=== PATIENT | female | born 1980 | race Caucasian/White ===

== ENCOUNTER 2016-10-21 05:58 | Emergency (ER) | payer MEDICAID, OTHER ==
[~2016-10-21] VITALS: Ht 167.6 cm; Wt 90.0 kg
[~2016-10-21 05:58] MED LIST: IBUP800T23 PO; MEDR4PAK3 PO; METH750T2 PO
[2016-10-21 05:59] VITALS: BP 213/120; PULSE 107; RESP 18; TEMP 98.2; O2SAT 97
--- NOTE | 2016-10-21 06:24 | PD ---
HPI Chief Complaint: Abdominal Pain Time Seen by Provider: 06:04 Travel History International Travel<30 days: No Contact w/Intl Traveler<30days: No Traveled to known affect area: No History of Present Illness HPI This is a 36-year-old female who presents to the emergency department with upper abdominal discomfort this morning that woke her from sleep, constant, moderate severity associated with an episode of vomiting with some blood in her vomit. She denies any fevers or chills. She denies any diarrhea or constipation. Her last bowel movement was yesterday and was normal. She denies any dysuria, frequency or urgency. She says her menstrual cycles are irregular but she doesn't think she could be . She's had an ulcer in the past. She's also had a cholecystectomy. [facility] Past Medical History Ulcer: Yes ?: Not LMP: NOT SURE/IRREGULAR Past Surgical History Cholecystectomy: Yes Social History Alcohol Use: No Tobacco Use: No Substance Use: No Allergies-Medications (Allergen,Severity, Reaction): Coded Allergies: No Known Allergies (Unverified , 10/21/16) Reported Meds & Prescriptions Reported Meds & Active Scripts Active No Active Prescriptions or Reported Medications Review of Systems Except as stated in HPI: all other systems reviewed are Neg Physical Exam Narrative GENERAL:Well appearing, no acute distress SKIN: Focused skin assessment warm and dry. HEAD: Atraumatic. Normocephalic. EYES: Pupils equal and round. No injection or drainage. ENT: Moist mucous membranes NECK: Trachea midline. CARDIOVASCULAR: Regular rate and rhythm. No murmur appreciated. RESPIRATORY: Clear to auscultation. Breath sounds equal bilaterally. GASTROINTESTINAL: Abdomen soft, tender to palpation in the epigastrium with no rebound or guarding. MUSCULOSKELETAL: No obvious deformities. NEUROLOGICAL: Awake and alert. No obvious cranial nerve deficits. Moving all extremities. PSYCHIATRIC: Appropriate mood and affect; insight and judgment normal. Data Data Last Documented VS Vital Signs Date Time Temp Pulse Resp B/P Pulse Ox O2 Delivery O2 Flow Rate FiO2 10/21/16 05:59 98.2 107 18 213/120 97 Room Air Orders Complete Blood Count With Diff (10/21/16 06:19) Comprehensive Metabolic Panel (10/21/16 06:19) ^ Insert Iv (10/21/16 06:19) Ed Urine Pregnancytest Poc (10/21/16 06:19) Urinalysis - C+S If Indicated (10/21/16 06:19) Lipase (10/21/16 06:19) Al-Mag Hy-Si 40-40-4 Mg/Ml Liq (Mag-Al P (10/21/16 06:30) Ueots-Aikidy-Yqrhpo-Pb Liq ( Liq (10/21/16 06:30) Lidocaine 2% Viscous (Xylocaine 2% Visco (10/21/16 06:30) Ondansetron Inj (Zofran Inj) (10/21/16 06:45) Ct Abd/Pel W Iv Contrast(Rout) (10/21/16 ) Morphine Inj (Morphine Inj) (10/21/16 06:45) MDM Medical Decision Making Medical Screen Exam Complete: Yes Emergency Medical Condition: Yes Interpretation(s) afebrile, tachycardic, hypertensive Differential Diagnosis Gastroenteritis, optic ulcer disease, gastritis, pancreatitis, gastric outlet obstruction, perforated ulcer Narrative Course This is a 36-year-old female who presents to the emergency department with epigastric abdominal pain and multiple episodes of vomiting. Here in the emergency Department my initial impression was that she has peptic ulcer disease or gastritis. She was given a GI cocktail and she subsequently vomited and her pain worsen. Labs are obtained and a CT scan was ordered to rule out gastric outlet obstruction or perforated ulcer. Scripts No Active Prescriptions or Reported Meds Laura Alvarez MD Oct 21, 2016 06:24
[2016-10-21] MEDS ORDERED: ALUMINUM/MAGNESIUM/SIMETH 30 ML CUP PO ONE (06:30)
[2016-10-21] MEDS ORDERED: ATROPINE/SCOPOLAM/HYOSCYAM/PB ELIXIR 10 ML CUP PO ONE (06:30)
[2016-10-21] MEDS ORDERED: LIDOCAINE VISCOUS 2% SOLN 15 ML UDC SWISH-SWAL ONE (06:30)
[2016-10-21] MEDS ORDERED: MORPHINE SULFATE 8 MG/ML INJ IV PUSH ONE (06:45)
[2016-10-21] MEDS ORDERED: ONDANSETRON HCL 4 MG/2 ML VIAL IV ONE (06:45)
[2016-10-21 06:46] LABS: AUTOMATED NEUTROPHIL # 6.9 TH/MM3 (1.8-7.7); BASOPHIL % 0.4 % (0.0-2.0); EOSINOPHIL # 0.1 TH/MM3 (0-0.4); EOSINOPHIL % 1.4 % (0.0-4.0); HEMATOCRIT 45.3 % (35.0-46.0); HEMO FLAGS DIFF FINAL; LYMPHOCYTE # 1.2 TH/MM3 (1.0-4.8); MEAN CELL VOLUME 88.9 FL (80.0-100.0); MEAN CORPUSCULAR HEMOGLOBIN 30.6 PG (27.0-34.0); MEAN CORPUSCULAR HGB CONC 34.5 % (32.0-36.0); MONO % 4.4 % (0.0-8.0); NEUT % 79.8 % (16.0-70.0); PLATELET COUNT 204 TH/MM3 (150-450); RED CELL DISTRIBUTION WIDTH 13.5 % (11.6-17.2); WHITE BLOOD COUNT 8.6 TH/MM3 (4.0-11.0)
[2016-10-21 06:56] VITALS: BP 170/103; PULSE 75; RESP 18; O2SAT 97
[2016-10-21 07:04] VITALS: BP 161/85; PULSE 74; RESP 18; O2SAT 98
[2016-10-21 07:04] LABS: ALT (GPT) 70 U/L (10-53); ANION GAP 9 MEQ/L (5-15); AST (GOT) 40 U/L (15-37); BACTERIA, URINE FEW /hpf; BICARBONATE 26.4 MEQ/L (21.0-32.0); BLOOD UREA NITROGEN 10 MG/DL (7-18); BLOOD, URINE MOD (NEG); CHLORIDE 104 MEQ/L (98-107); COMMENT (UR) CULTURE INDICATED; CULTURE IF INDICATED CULTURE INDICATED; GLOMERULAR FILTRATION RATE 60 ML/MIN (>89); GLUCOSE,URINE NEG (NEG); KETONE, URINE NEG (NEG); MUCUS URINE MANY /lpf (OCC); NITRITE,URINE NEG (NEG); PH, URINE 6.5 (5.0-8.5); POTASSIUM 3.5 MEQ/L (3.5-5.1); SODIUM (NA) 139 MEQ/L (136-145); SQUAMOUS EPITHELIAL CELL URINE 3 /hpf (0-5); URINE COLOR YELLOW (YELLW/STRAW)
[2016-10-21 07:07] LABS: ALKALINE PHOSPHATASE 68 U/L (45-117); TOTAL BILIRUBIN ADULT 0.6 MG/DL (0.2-1.0)
--- NOTE | 2016-10-21 07:26 | PD ---
Physical Exam Date Seen by Provider: Oct 21, 2016 Time Seen by Provider: 07:00 Narrative The patient was signed out to me by Dr. Alvarez at change of shift. Please see her H&P for further details. Patient presents with complaints of epigastric pain. The patient has a history of previous cholecystectomy. She was given a GI cocktail by Dr. Alvarez however vomited it up. She is afebrile. We are awaiting laboratory tests and CT scan. Data Data Last Documented VS Vital Signs Date Time Temp Pulse Resp B/P Pulse Ox O2 Delivery O2 Flow Rate FiO2 10/21/16 07:04 74 18 161/85 98 Room Air 10/21/16 05:59 98.2 Orders Complete Blood Count With Diff (10/21/16 06:19) Comprehensive Metabolic Panel (10/21/16 06:19) ^ Insert Iv (10/21/16 06:19) Ed Urine Pregnancytest Poc (10/21/16 06:19) Urinalysis - C+S If Indicated (10/21/16 06:19) Lipase (10/21/16 06:19) Al-Mag Hy-Si 40-40-4 Mg/Ml Liq (Mag-Al P (10/21/16 06:30) Sbwgr-Itdeno-Ijykfk-Pb Liq ( Liq (10/21/16 06:30) Lidocaine 2% Viscous (Xylocaine 2% Visco (10/21/16 06:30) Ondansetron Inj (Zofran Inj) (10/21/16 06:45) Ct Abd/Pel W Iv Contrast(Rout) (10/21/16 ) Morphine Inj (Morphine Inj) (10/21/16 06:45) Urine Culture (10/21/16 06:15) Iohexol 350 Inj (Omnipaque 350 Inj) (10/21/16 07:32) Ceftriaxone Inj (Rocephin Inj) (10/21/16 08:30) Ketorolac Inj (Toradol Inj) (10/21/16 08:45) Sodium Chlor 0.9% 1000 Ml Inj (Ns 1000 M (10/21/16 08:45) Labs Laboratory Tests Test 10/21/16 06:15 White Blood Count 8.6 TH/MM3 Red Blood Count 5.10 MIL/MM3 Hemoglobin 15.6 GM/DL Hematocrit 45.3 % Mean Corpuscular Volume 88.9 FL Mean Corpuscular Hemoglobin 30.6 PG Mean Corpuscular Hemoglobin 34.5 % Concent Red Cell Distribution Width 13.5 % Platelet Count 204 TH/MM3 Mean Platelet Volume 8.0 FL Neutrophils (%) (Auto) 79.8 % Lymphocytes (%) (Auto) 14.0 % Monocytes (%) (Auto) 4.4 % Eosinophils (%) (Auto) 1.4 % Basophils (%) (Auto) 0.4 % Neutrophils # (Auto) 6.9 TH/MM3 Lymphocytes # (Auto) 1.2 TH/MM3 Monocytes # (Auto) 0.4 TH/MM3 Eosinophils # (Auto) 0.1 TH/MM3 Basophils # (Auto) 0.0 TH/MM3 CBC Comment DIFF FINAL Differential Comment Urine Color YELLOW Urine Turbidity HAZY Urine pH 6.5 Urine Specific [place] 1.021 Urine Protein 100 mg/dL Urine Glucose (UA) NEG mg/dL Urine Ketones NEG mg/dL Urine Occult Blood MOD Urine Nitrite NEG Urine Bilirubin NEG Urine Urobilinogen LESS THAN 2.0 MG/DL Urine Leukocyte Esterase LARGE Urine RBC 35 /hpf Urine WBC /hpf Urine WBC Clumps FEW Urine Squamous Epithelial 3 /hpf Cells Urine Bacteria FEW /hpf Urine Mucus MANY /lpf Microscopic Urinalysis Comment CULTURE INDICATED Sodium Level 139 MEQ/L Potassium Level 3.5 MEQ/L Chloride Level 104 MEQ/L Carbon Dioxide Level 26.4 MEQ/L Anion Gap 9 MEQ/L Blood Urea Nitrogen 10 MG/DL Creatinine 1.04 MG/DL Estimat Glomerular Filtration 60 ML/MIN Rate Random Glucose 140 MG/DL Calcium Level 9.0 MG/DL Total Bilirubin 0.6 MG/DL Aspartate Amino Transf 40 U/L (AST/SGOT) Alanine Aminotransferase 70 U/L (ALT/SGPT) Alkaline Phosphatase 68 U/L Total Protein 7.8 GM/DL Albumin 3.9 GM/DL Lipase 173 U/L [facility] Medical Record Reviewed: Yes Supervised Visit with CARRILLO: No Interpretation(s) Last 24 hours Impressions Abdomen/Pelvis CT 10/21/16 0000 Signed Impressions: Service Date/Time: Friday, October 21, 2016 07:18 - CONCLUSION: 1. Mild obstructive uropathy on the right with hydroureter. There is a calculus in the right renal pelvis measuring 2.0 x 1.8 cm. 2. Intrauterine device. 3. Hepatic steatosis and cholecystectomy. 4. Mildly prominent small bowel loops in the left midabdomen no obstruction identified. Sukhjinder Davidson MD Differential Diagnosis Peptic ulcer disease versus retained gallstone in the biliary duct versus pancreatitis Narrative Course 36-year-old female presents with complaints of abdominal pain. The patient states it woke her up suddenly. She reports it as sharp and stabbing. White count was normal. Urinalysis showed a UTI. The patient does have a CT scan that showed a distal ureteral stone measuring 2 mm. There is also mild hydronephrosis. Liver showed steatosis. Patient's liver enzymes were slightly elevated. She reports that she's been told this in the past. She'll be instructed to follow up with a GI physician. She has [employer] insurance and is told to call them for referral. She does not have a primary care physician as of yet. She'll also be told to follow up with the urologist through [employer]. She's been given a prescription for Macrobid, Zofran and ketorolac. 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 Drink plenty of liquids. Med/Other Pt SpecificInfo: Prescription(s) given Scripts Ondansetron (Zofran)4 Mg Tab4 Mg PO Q8HR PRN (NAUSEA OR VOMITING) #15 TAB Ref 0 Prov:Martin Mcdermott MD 10/21/16 Ketorolac 10 Mg Tab10 Mg PO TID PRN (Pain Management) #10 TAB Ref 0 Prov:Martin Mcdermott MD 10/21/16 Nitrofurantoin Monohydrate Macrocrystals (Macrobid)100 Mg Upb163 Mg PO BID #14 CAP Ref 0 Prov:Martin Mcdermott MD 10/21/16 Disposition: 01 DISCHARGE HOME Condition: Stable Martin Mcdermott MD Oct 21, 2016 07:26
[2016-10-21] MEDS ORDERED: IOHEXOL 350 MG/ML 10 ML VIAL (for RAD DIAG) IV ONE (07:32)
--- NOTE | 2016-10-21 07:47 | RADRPT ---
EXAM DATE/TIME: 10/21/2016 07:18 [place] COMPARISON: No previous studies available for comparison. INDICATIONS : Upper quadrant abdominal pain with vomiting. IV CONTRAST: 80 cc Omnipaque 350 (iohexol) IV ORAL CONTRAST: No oral contrast ingested. RADIATION DOSE: 16.92 CTDIvol (mGy) MEDICAL HISTORY : Ulcers. SURGICAL HISTORY : Cholecystectomy. ENCOUNTER: Initial ACUITY: 1 day PAIN SCALE: 6/10 LOCATION: Bilateral upper quadrant TECHNIQUE: Volumetric scanning of the abdomen and pelvis was performed. Using automated exposure control and ad justment of the mA and/or kV according to patient size, radiation dose was kept as low as reasonably achievable to obtain optimal diagnostic quality images. DICOM format image data is available electro nically for review and comparison. FINDINGS: LOWER LUNGS: The visualized lower lungs are clear. LIVER: Decreased attenuation without lesion. There is no dilation of the biliary tree. Cholecystectomy. SPLEEN: Normal size without lesion. PANCREAS: Within normal limits. KIDNEYS: Normal in size and shape. There is no mass, stone or hydronephrosis on the left. Mild obstructive ur opathy on the right secondary to a right sided calculus in the renal pelvis measuring 2.0 x 1.8 cm. M ild hydroureter on the right. ADRENAL GLANDS: Within normal limits. VASCULAR: There is no aortic aneurysm. BOWEL/MESENTERY: Mildly prominent small bowel loops left midabdomen. There is no free intraperitoneal air or fluid. ABDOMINAL WALL: Within normal limits. RETROPERITONEUM: There is no lymphadenopathy. BLADDER: No wall thickening or mass. REPRODUCTIVE: 7 cm cyst in right adnexa. Intrauterine device.. INGUINAL: There is no lymphadenopathy or hernia. MUSCULOSKELETAL: Within normal limits for patient age. CONCLUSION: 1. Mild obstructive uropathy on the right with hydroureter. There is a calculus in the right renal pe lvis measuring 2.0 x 1.8 cm. 2. Intrauterine device. 3. Hepatic steatosis and cholecystectomy. 4. Mildly prominent small bowel loops in the left midabdomen no obstruction identified. Sukhjinder Davidson MD on October 21, 2016 at 7:38 Board Certified Radiologist. This report was verified electronically.
[2016-10-21] MEDS ORDERED: cefTRIAXone INJ 1,000 MG in SODIUM CHLORIDE 0.9% INJ 100 ML IV ONE (08:30)
[2016-10-21] MEDS ORDERED: KETOROLAC TROMETHAMINE 30 MG/ML (IVP) VIAL IV PUSH ONE (08:45)
[2016-10-21] MEDS ORDERED: SODIUM CHLOR 0.9% 1000 ML INJ 1,000 ML IV ONE (08:45)
[2016-10-21] MEDS ORDERED: MACR100C2 PO (09:35)
[2016-10-21] MEDS ORDERED: ZOFR4TAB PO (09:35)
[2016-10-21] MEDS ORDERED: KETO10 PO (09:35)
[2016-10-21 10:26] VITALS: BP 158/84; TEMP 98.3
== END 2016-10-21 10:20 | disposition home or self-care (01) ==
LOC: NEPC 05:58
DX: N13.2 Hydronephrosis with renal and ureteral calculous obstruction (principal); N39.0 Urinary tract infection, site not specified; B96.89 Other specified bacterial agents as the cause of diseases classified elsewhere; R74.8 Abnormal levels of other serum enzymes
CPT/HCPCS: 74177; 80053; 81001; 83690; 84703; 85025; 87086; 96374; 96375; 99285; J0696; J1885; J2270; J2405; J7030; Q9967